=== PATIENT | male | born 1985 | race African-American/Black ===

== ENCOUNTER 2019-06-04 06:47 | Emergency (ER) | payer SELFPAY ==
[2019-06-04] MEDS ORDERED: METHYLPREDNISOLONE 125 MG INJ ONE (07:21)
[2019-06-04] MEDS ORDERED: Magnesium Sulfate 2gm IVPB 2 G/50 ML BAG IV ONE (07:22)
[2019-06-04] MEDS ORDERED: IPRATROPIUM BROM 0.5MG/2.5ML ONE (07:22)
[2019-06-04] MEDS ORDERED: ALBUTEROL 2.5 MG/3 ML NEB SOL ONE (07:22)
[2019-06-04 07:59] LABS: Absolute Lymphocytes (CBC) 1.2 K/uL (0.7-4.9); Basophils % 0.6 % (0-1.3); Hematocrit 39.7 % (39.6-49.0); Lymphocytes % 14.2 % (15.3-44.8); MPV 9.7 fL (7.6-11.3); RBC Red Blood Cell Count 4.75 M/uL (4.33-5.43)
[2019-06-04 08:25] LABS: BUN Blood Urea Nitrogen 8 mg/dL (7-18); Bicarbonate 23 mmol/L (21-32); Glucose Level 120 mg/dL (74-106); Potassium 3.5 mmol/L (3.5-5.1); Sodium Level 140 mmol/L (136-145); Troponin (Emerg Dept Use Only) < 0.02 ng/mL (0.0-0.045)
--- NOTE | 2019-06-04 08:28 | EKG ---
Test Date: 2019-06-04 Test Time: 07:04:31 Gas Leak Tester: RUTH MEASUREMENT RESULTS: Intervals: Rate: 108 NM: 190 QRSD: 86 QT: 328 QTc: 439 Adrian: P: 49 NM: 190 QRS: 118 T: 39 INTERPRETIVE STATEMENTS: Sinus tachycardia Right axis deviation Pulmonary disease pattern Abnormal ECG No previous ECG available for comparison Electronically Signed On 06-04-19 08:27:18 CDT by Russel Gaffney
--- NOTE | 2019-06-04 09:03 | RAD REPORT ---
EXAM DESCRIPTION: RAD - Chest Pa And Lat (2 Views) - 06/04/2019 7:36 am CLINICAL HISTORY: Chest pain;Dyspnea COMPARISON: None. TECHNIQUE: PA and lateral views of the chest were obtained. FINDINGS: The lungs are clear. Heart size is normal and central vasculature is within normal limit s. No pleural effusion or pneumothorax seen. No acute bony finding noted. No aortic abnormality. IMPRESSION: No acute cardiopulmonary process.
--- NOTE | 2019-06-04 09:16 | EDPHYS ---
Physician Documentation [facility] Name: James Johnson Age: 34 yrs Sex: Male : 1985 Arrival Date: 06/04/2019 Time: 06:47 Bed 5 Private MD: ED Physician Lex Sanders HPI: 06/04 08:11 This 34 yrs old Black Male presents to ER via Ambulatory with complaints of Chest Pain, kb Breathing Difficulty. 08:11 The patient has shortness of breath at rest. Onset: The symptoms/episode began/occurred kb 2 day(s) ago. Duration: The symptoms are continuous. The patient's shortness of breath is aggravated by exertion. Associated signs and symptoms: Pertinent positives: chest pain, non-productive cough. Severity of symptoms: At their worst the symptoms were moderate in the emergency department the symptoms are unchanged. The patient has not experienced similar symptoms in the past. The patient has not recently seen a physician. Pt reports shortness of breath and cough for 2 days. Today started having chest pain on the way to work. States he had asthma as a child, but hasn't had problems with it since then. Chest pain worse with inspiration and cough. . Historical: - Allergies: 07:03 No Known Allergies; tl1 - Home Meds: 07:03 None [Active]; tl1 - PMHx: 07:03 Anemia; tl1 - PSHx: 07:03 Appendectomy; tl1 - Immunization history:: Adult Immunizations up to date. - Social history:: Smoking status: Patient uses tobacco products, denies chronic smoking, but will smoke occasionally, Patient/guardian denies using alcohol, street drugs. - Ebola Screening: : Patient negative for fever greater than or equal to 101.5 degrees Fahrenheit, and additional compatible Ebola Virus Disease symptoms Patient denies exposure to infectious person Patient denies travel to an Ebola-affected area in the 21 days before illness onset. ROS: 08:10 Constitutional: Negative for fever, chills, and weight loss, Neck: Negative for injury, kb pain, and swelling, Abdomen/GI: Negative for abdominal pain, nausea, vomiting, diarrhea, and constipation, Back: Negative for injury and pain, : Negative for injury, bleeding, discharge, and swelling, MS/Extremity: Negative for injury and deformity, Skin: Negative for injury, rash, and discoloration, Neuro: Negative for headache, weakness, numbness, tingling, and seizure. 08:10 Cardiovascular: Positive for chest pain, Negative for edema, orthopnea, palpitations, paroxysmal nocturnal dyspnea. 08:10 Respiratory: Positive for cough, with no reported sputum, dyspnea on exertion, shortness of breath. Exam: 08:10 Constitutional: This is a well developed, well nourished patient who is awake, alert, kb and in no acute distress. Head/Face: Normocephalic, atraumatic. ENT: Nares patent. No nasal discharge, no septal abnormalities noted. Tympanic membranes are normal and external auditory canals are clear. Oropharynx with no redness, swelling, or masses, exudates, or evidence of obstruction, uvula midline. Mucous membranes moist. Neck: Trachea midline, no thyromegaly or masses palpated, and no cervical lymphadenopathy. Supple, full range of motion without nuchal rigidity, or vertebral point tenderness. No Meningismus. Chest/axilla: Normal chest wall appearance and motion. Nontender with no deformity. No lesions are appreciated. Cardiovascular: Regular rate and rhythm with a normal S1 and S2. No gallops, murmurs, or rubs. Normal PMI, no JVD. No pulse deficits. Abdomen/GI: Soft, non-tender, with normal bowel sounds. No distension or tympany. No guarding or rebound. No evidence of tenderness throughout. Skin: Warm, dry with normal turgor. Normal color with no rashes, no lesions, and no evidence of cellulitis. MS/ Extremity: Pulses equal, no cyanosis. Neurovascular intact. Full, normal range of motion. Neuro: Awake and alert, GCS 15, oriented to person, place, time, and situation. Cranial nerves II-XII grossly intact. Motor strength 5/5 in all extremities. Sensory grossly intact. Cerebellar exam normal. Normal gait. 08:10 Respiratory: the patient does not display signs of respiratory distress, Respirations: normal, Breath sounds: wheezing: expiratory that is moderate, is heard diffusely. Vital Signs: 07:03 BP 143 / 96; Pulse 108; Resp 19; Temp 98(O); Pulse Ox 97% ; Weight 167.83 kg; Height 5 tl1 ft. 11 in. (180.34 cm); Pain 5/10; 08:14 BP 141 / 88; Pulse 82; Resp 17; Pulse Ox 99% on Nebulizer Mask; sg 07:03 Body Mass Index 51.60 (167.83 kg, 180.34 cm) tl1 MDM: 07:01 Patient medically screened. kb 08:10 Data reviewed: vital signs, nurses notes. Data interpreted: Pulse oximetry: on room air kb is 97 %. Interpretation: normal. 08:17 The patient's Wells Deep Vein Thrombosis Score was calculated as follows: Heart Rate kb >100 BPM (1.5 Pts). The patient's pulmonary embolism risk score was calculated as follows: the patients heart rate is greater than 100 beats per minute (1.5 Pts). 09:13 Counseling: I had a detailed discussion with the patient and/or guardian regarding: the kb historical points, exam findings, and any diagnostic results supporting the discharge/admit diagnosis, lab results, radiology results, the need for outpatient follow up, a family practitioner, to return to the emergency department if symptoms worsen or persist or if there are any questions or concerns that arise at home. ED course: Pt feeling better after treatment. Wheezing decreased throughout lung perdomo. Educated on plan of care, need for follow up with PCP and to return for worsening symptome. Verbal understanding received. . 06/04 07:20 Order name: CBC with Diff; Complete Time: 08:10 kb 06/04 07:20 Order name: Basic Metabolic Panel; Complete Time: 08:28 kb 06/04 07:20 Order name: Troponin (emerg Dept Use Only); Complete Time: 08:28 kb 06/04 07:20 Order name: D-Dimer; Complete Time: 08:17 kb 06/04 07:20 Order name: Chest Pa And Lat (2 Views) XRAY; Complete Time: 09:10 kb 06/04 07:20 Order name: EKG; Complete Time: 07:20 kb 06/04 07:20 Order name: EKG - Nurse/Tech; Complete Time: 07:41 kb 06/04 07:20 Order name: IV Start; Complete Time: 07:52 kb Administered Medications: 07:45 Drug: Magnesium Sulfate 2 grams Route: IVPB; Infused Over: 2 hrs; Site: left hand; sg 09:00 Follow up: Response: No adverse reaction; IV Status: Completed infusion sg 07:45 Drug: SOLU-Medrol 125 mg Route: IVP; Site: left hand; 07:58 Drug: DuoNeb (3:1) (2.5 mg - 0.5 mg) 3 ml Route: Nebulizer; Disposition: 09:38 Co-signature as Attending Physician, Lex Sanders MD I agree with the assessment and kdr plan of care. Disposition: 06/04/19 09:15 Discharged to Home. Impression: Bronchitis, not specified as acute or chronic. - Condition is Stable. - Discharge Instructions: Acute Bronchitis, [id number], Viral Respiratory Infection, [id number]. - Prescriptions for Prednisone 20 mg Oral Tablet - take 1 tablet by ORAL route once daily for 5 days; 5 tablet. Albuterol Sulfate 90 mcg/actuation - inhale 1-2 puff by INHALATION route every 4-6 hours; 1 Inhaler. - Medication Reconciliation Form, Thank You Letter, Antibiotic Education, Prescription Opioid Use, Work release form form. - Follow up: Emergency Department; When: As needed; Reason: Worsening of condition. Follow up: Private Physician; When: 2 - 3 days; Reason: Recheck today's complaints, Continuance of care, Re-evaluation by your physician. Signatures: Dispatcher [employer] EDPooja Aleman, BOATHOUSE KEEPER-C BOATHOUSE KEEPER-Bernardo Argueta RN RN Lex Gill MD MD [facility] Lorena Garcia RN RN tl1 Corrections: (The following items were deleted from the chart) 09:26 09:15 06/04/2019 09:15 Discharged to Home. Impression: Bronchitis, not specified as sg acute or chronic. Condition is Stable. Forms are Medication Reconciliation Form, Thank You Letter, Antibiotic Education, Prescription Opioid Use. Follow up: Emergency Department; When: As needed; Reason: Worsening of condition. Follow up: Private Physician; When: 2 - 3 days; Reason: Recheck today's complaints, Continuance of care, Re-evaluation by your physician. kb
--- NOTE | 2019-06-04 09:16 | ER ---
Nurse's Notes [facility] Name: James Johnson Age: 34 yrs Sex: Male : 1985 Arrival Date: 06/04/2019 Time: 06:47 Bed 5 Private MD: Diagnosis: Bronchitis, not specified as acute or chronic Presentation: 06/04 07:01 Presenting complaint: Patient states: I was on my way to work and I started having tl1 chest pain and shortness of breath. I have had a cough for 2 days. Transition of care: patient was not received from another setting of care. Onset of symptoms was June 04, 2019. Risk Assessment: Do you want to hurt yourself or someone else? Patient reports no desire to harm self or others. Initial Sepsis Screen: Does the patient meet any 2 criteria? No. Patient's initial sepsis screen is negative. Does the patient have a suspected source of infection? No. Patient's initial sepsis screen is negative. Care prior to arrival: None. 07:01 Method Of Arrival: Ambulatory tl1 07:01 Acuity: CONCEPCIÓN 3 tl1 Historical: - Allergies: 07:03 No Known Allergies; tl1 - Home Meds: 07:03 None [Active]; tl1 - PMHx: 07:03 Anemia; tl1 - PSHx: 07:03 Appendectomy; tl1 - Immunization history:: Adult Immunizations up to date. - Social history:: Smoking status: Patient uses tobacco products, denies chronic smoking, but will smoke occasionally, Patient/guardian denies using alcohol, street drugs. - Ebola Screening: : Patient negative for fever greater than or equal to 101.5 degrees Fahrenheit, and additional compatible Ebola Virus Disease symptoms Patient denies exposure to infectious person Patient denies travel to an Ebola-affected area in the 21 days before illness onset. Screenin:25 Abuse screen: Denies threats or abuse. Denies injuries from another. Nutritional sg screening: No deficits noted. Tuberculosis screening: No symptoms or risk factors identified. Never had TB. Assessment: 07:10 General: Appears in no apparent distress. well groomed, well developed, well nourished, sg Behavior is calm, cooperative, appropriate for age. Pain: Complains of pain in chest, that worsens with deep breathing Quality of pain is described as "tightness". Neuro: Level of Consciousness is awake, alert, obeys commands, Oriented to person, place, time, [employer] are equal bilaterally Moves all extremities. Full function Gait is steady, Speech is normal, Facial symmetry appears normal, Pupils are PERRLA. Cardiovascular: Patient's skin is warm and dry. Chest pain is denied. Respiratory: Airway is patent Respiratory effort is even, unlabored, Respiratory pattern is regular, symmetrical. GI: No signs and/or symptoms were reported involving the gastrointestinal system. : No signs and/or symptoms were reported regarding the genitourinary system. EENT: No signs and/or symptoms were reported regarding the EENT system. Derm: Skin is intact, is healthy with good turgor, Skin is dry, Skin is normal, Skin temperature is warm. Musculoskeletal: Circulation, motion, and sensation intact. Range of motion: intact in all extremities. 07:14 Reassessment: Patient appears in no apparent distress at this time. Louise FOLEYP at sg bedside with pt at this time, awaiting orders. 08:10 Reassessment: Patient appears in no apparent distress at this time. Patient and/or sg family updated on plan of care and expected duration. Pain level reassessed. Patient is alert, oriented x 3, equal unlabored respirations, skin warm/dry/pink. 08:38 Reassessment: Patient appears in no apparent distress at this time. breathing treatment sg continues at this time. Vital Signs: 07:03 BP 143 / 96; Pulse 108; Resp 19; Temp 98(O); Pulse Ox 97% ; Weight 167.83 kg; Height 5 tl1 ft. 11 in. (180.34 cm); Pain 5/10; 08:14 BP 141 / 88; Pulse 82; Resp 17; Pulse Ox 99% on Nebulizer Mask; sg 07:03 Body Mass Index 51.60 (167.83 kg, 180.34 cm) tl1 ED Course: 06:47 Patient arrived in ED. ds1 06:59 Pooja Kiran FNP-C is [facility]. kb 07:00 Lex Sanders MD is Attending Physician. kb 07:02 Triage completed. tl1 07:03 Arm band placed on right wrist. tl1 07:08 EKG done, by ED staff, reviewed by Lex Sanders MD. em1 07:10 Bernardo Quinn, RN is Primary Nurse. sg 07:10 Patient has correct armband on for positive identification. Bed in low position. Call sg light in reach. Pulse ox on. NIBP on. Warm blanket given. Head of bed elevated. 07:25 Patient moved to radiology via wheelchair. sg 07:37 Chest Pa And Lat (2 Views) XRAY In Process Unspecified. EDMS 07:52 Initial lab(s) drawn, by ED staff, sent to lab. Inserted saline lock: 20 gauge wrist, em1 using aseptic technique. Blood collected. 08:10 Oxygen administered via a nebulizer mask. sg Administered Medications: 07:45 Drug: Magnesium Sulfate 2 grams Route: IVPB; Infused Over: 2 hrs; Site: left hand; sg 09:00 Follow up: Response: No adverse reaction; IV Status: Completed infusion sg 07:45 Drug: SOLU-Medrol 125 mg Route: IVP; Site: left hand; sg 07:58 Drug: DuoNeb (3:1) (2.5 mg - 0.5 mg) 3 ml Route: Nebulizer; Outcome: 09:15 Discharge ordered by . kb 09:26 Patient left the ED. sg Signatures: Dispatcher [employer] EDMS Pooja Kiran, AUTOMATION QA LEAD-C AUTOMATION QA LEAD-Ckb Bernardo Quinn, RN RN Tina Moreno ds1 Sreedhar Singletary em1 Lorena Garcia, RN RN tl1
[2019-06-04 09:52] VITALS: TEMP 98
[2019-06-04 09:53] VITALS: BP 141/88; O2SAT 99
== END 2019-06-04 09:26 | disposition home or self-care (01) ==
LOC: ER 06:47
DX: J40 Bronchitis, not specified as acute or chronic (principal); Z72.0 Tobacco use
CPT/HCPCS: 36415; 71046; 80048; 84484; 85025; 85379; 93005; 94640; 96365; 96375; 99285; J2930; J3475

== ENCOUNTER 2019-10-19 00:06 | Observation (INO) | payer SELFPAY ==
[2019-10-19] MEDS ORDERED: Magnesium Sulfate 2gm IVPB 2 G/50 ML BAG IV ONE (01:05)
[2019-10-19] MEDS ORDERED: IPRATROPIUM BROM 0.5MG/2.5ML ONE (01:06)
[2019-10-19 01:21] LABS: Basophils % 0.6 % (0-1.3); Hematocrit 40.6 % (39.6-49.0); Lymphocytes % 9.6 % (15.3-44.8); MPV 9.1 fL (7.6-11.3); RBC Red Blood Cell Count 4.56 M/uL (4.33-5.43)
--- NOTE | 2019-10-19 01:27 | EDPHYS ---
Physician Documentation [facility] Name: James Johnson Age: 34 yrs Sex: Male : 1985 Arrival Date: 10/19/2019 Time: 00:07 Bed 13 Private MD: ED Physician Xochitl Joshua HPI: 10/18 00:22 This 34 yrs old Black Male presents to ER via Unassigned with complaints of sob. ma2 00:22 Onset: The symptoms/episode began/occurred gradually, 1 day(s) ago. Severity of ma2 symptoms: At their worst the symptoms were mild, in the emergency department the symptoms are unchanged. Associated signs and symptoms: Pertinent positives: Pertinent negatives: diarrhea, nausea, sore throat. The patient has not experienced similar symptoms in the past. Historical: - Allergies: 00:45 No Known Allergies; lp1 - Home Meds: 00:45 None [Active]; lp1 - PMHx: 00:45 Anemia; Asthma; lp1 - PSHx: 00:45 Cholecystectomy; lp1 - Immunization history:: Adult Immunizations up to date. - Social history:: Patient/guardian denies using alcohol, street drugs, The patient lives with family, Smoking status: Patient denies any tobacco usage or history of. - Family history:: not pertinent. ROS: 00:22 Constitutional: Negative for fever, chills, and weight loss. ma2 00:22 All other systems are negative. Exam: 00:22 Constitutional: This is a well developed, well nourished patient who is awake, alert, ma2 and in no acute distress. Chest/axilla: Normal chest wall appearance and motion. Nontender with no deformity. No lesions are appreciated. Cardiovascular: Regular rate and rhythm with a normal S1 and S2. No gallops, murmurs, or rubs. Normal PMI, no JVD. No pulse deficits. Respiratory: bilateral wheezes, diffuse Lungs have equal breath sounds bilaterally, clear to auscultation and percussion. No rales, rhonchi or . No increased work of breathing, no retractions or nasal flaring. Abdomen/GI: Soft, non-tender, with normal bowel sounds. No distension or tympany. No guarding or rebound. No evidence of tenderness throughout. Skin: Warm, dry with normal turgor. Normal color with no rashes, no lesions, and no evidence of cellulitis. MS/ Extremity: Pulses equal, no cyanosis. Neurovascular intact. Full, normal range of motion. Neuro: Awake and alert, GCS 15, oriented to person, place, time, and situation. Cranial nerves II-XII grossly intact. Motor strength 5/5 in all extremities. Sensory grossly intact. Cerebellar exam normal. Normal gait. Vital Signs: 00:15 BP 143 / 77; Pulse 108; Resp 22; Temp 97.4(TE); Pulse Ox 99% on 10% Nebulizer Mask; lp1 Weight 165.56 kg (R); Height 5 ft. 11 in. (180.34 cm); Pain 0/10; 01:00 BP 157 / 90; Pulse 94; Resp 18; Pulse Ox 98% on R/A; wh 02:15 BP 151 / 96; Pulse 98; Resp 18; Pulse Ox 96% on R/A; wh 00:15 Body Mass Index 50.91 (165.56 kg, 180.34 cm) lp1 MDM: 00:09 Patient medically screened. ma2 00:22 Differential Diagnosis: Bronchitis Influenza Upper Respiratory Infection Sinusitis. ma2 Data reviewed: vital signs, nurses notes. Counseling: I had a detailed discussion with the patient and/or guardian regarding: the historical points, exam findings, and any diagnostic results supporting the discharge/admit diagnosis, the presence of at least one elevated blood pressure reading (>120/80) during this emergency department visit, the need for outpatient follow up. Response to treatment: the patient's symptoms have markedly improved after treatment. 10/18 00:22 Order name: BMP ma2 10/18 00:22 Order name: CBC with Diff ma2 10/18 00:22 Order name: Lipase ma2 10/18 00:22 Order name: Magnesium ma2 10/18 00:23 Order name: Flu ma2 10/18 01:46 Order name: CBC with Automated Diff EDMS 10/18 00:22 Order name: XRAY CXR (1 view) ma2 10/18 01:46 Order name: CONS Pharmacy Consult EDMS 10/18 01:46 Order name: Regular EDMS 10/18 01:46 Order name: CBC with Automated Diff EDMS 10/18 01:46 Order name: Comprehensive Metabolic Panel EDMS 10/18 01:46 Order name: Comprehensive Metabolic Panel EDID 10/18 00:22 Order name: Labs collected and sent; Complete Time: : wi2 10/18 00:22 Order name: O2 Per Protocol; Complete Time: : ma2 10/18 00:22 Order name: O2 Sat Monitoring; Complete Time: :2 Administered Medications: 01:07 Drug: Magnesium Sulfate 2 grams Route: IVPB; Infused Over: 2 hrs; Site: left antecubital; 02:02 Follow up: IV Status: Completed infusion lp1 02:29 Follow up: Response: No adverse reaction; IV Status: Completed infusion 01:08 Drug: AtroVENT Aerosol 0.5 mg Route: Inhalation; 01:46 Drug: AtroVENT Aerosol 0.5 mg Route: Inhalation; 02:29 Follow up: Response: No adverse reaction; Wheezing diminished Disposition: 10/19/19 01:25 Hospitalization ordered by Farideh Anthony for Observation. Preliminary diagnosis is Asthma. - Bed requested for Telemetry/MedSurg (observation). - Status is Observation. - Condition is Stable. - Problem is new. - Symptoms are unchanged. Signatures: Dispatcher [employer] [facility] Minoo Evangelista RN RN [facility] Ania Marks RN RN Vipul Juarez Xochitl Joshua MD MD ma2 Corrections: (The following items were deleted from the chart) 02:12 01:25 Hospitalization Ordered by Farideh Anthony MD for Observation. Preliminary cg diagnosis is Asthma. Bed requested for Telemetry/MedSurg (observation). Status is Observation. Condition is Stable. Problem is new. Symptoms are unchanged. ma2 02:47 02:12 10/19/2019 01:25 Hospitalization Ordered by Farideh Anthony MD for Observation. Preliminary diagnosis is Asthma. Bed requested for Telemetry/MedSurg (observation). Status is Observation. Condition is Stable. Problem is new. Symptoms are unchanged.
--- NOTE | 2019-10-19 01:27 | ER ---
Nurse's Notes [facility] Name: James Johnson Age: 34 yrs Sex: Male : 1985 Arrival Date: 10/19/2019 Time: 00:07 Bed 13 Private MD: Diagnosis: Asthma Presentation: 10/18 00:15 Chief complaint: EMS states: Called for patient with shortness of breath all days, lp1 worsening; Hx of asthma, no home meds; Per EMS, on arrival to scene, patient with audible wheezing, diaphoretic, tachycardic, 89% on RA; Symptoms improved on arrival to ED, patient feeling better. 00:15 Coronavirus screen: The patient has NOT traveled to a country currently being monitored lp1 by the [facility] within the last 14 days. The patient has NOT had contact with any known and/or suspected case of coronavirus. Ebola Screen: No symptoms or risks identified at this time. Initial Sepsis Screen: Does the patient meet any 2 criteria? RR > 20 per min. HR > 90 bpm. Does the patient have a suspected source of infection? No. Patient's initial sepsis screen is negative. Risk Assessment: Do you want to hurt yourself or someone else? Patient reports no desire to harm self or others. Onset of symptoms was October 19, 2019. 00:15 Method Of Arrival: EMS: [facility] lp1 00:15 Acuity: CONCEPCIÓN 3 lp1 00:20 Care prior to arrival: Medication(s) given: Albuterol x2, Atrovent x1, Solu-Medrol lp1 125mg IV IV initiated. 20 GA, in the left forearm, Med neb given. Historical: - Allergies: 00:45 No Known Allergies; lp1 - Home Meds: 00:45 None [Active]; lp1 - PMHx: 00:45 Anemia; Asthma; lp1 - PSHx: 00:45 Cholecystectomy; lp1 - Immunization history:: Adult Immunizations up to date. - Social history:: Patient/guardian denies using alcohol, street drugs, The patient lives with family, Smoking status: Patient denies any tobacco usage or history of. - Family history:: not pertinent. Screenin:45 Abuse screen: Denies threats or abuse. Denies injuries from another. Nutritional lp1 screening: No deficits noted. Tuberculosis screening: No symptoms or risk factors identified. Fall Risk None identified. Assessment: 00:15 General: Appears in no apparent distress. Behavior is appropriate for age. Pain: Denies lp1 pain. Neuro: Level of Consciousness is awake, alert, obeys commands, Oriented to person, place, time, situation. Cardiovascular: Patient's skin is warm and dry. Respiratory: Reports shortness of breath Airway is patent Respiratory effort is even, labored, Respiratory pattern is symmetrical, Breath sounds are coarse bilaterally. Onset: The symptoms/episode began/occurred gradually, the patient has moderate shortness of breath. GI: Abdomen is obese. : No signs and/or symptoms were reported regarding the genitourinary system. EENT: No signs and/or symptoms were reported regarding the EENT system. Derm: Skin is intact, Skin is dry, Skin is normal. Musculoskeletal: No deficits noted. 01:18 Reassessment: Patient appears in no apparent distress at this time. No changes from previously documented assessment. Patient and/or family updated on plan of care and expected duration. Pain level reassessed. Patient is alert, oriented x 3, equal unlabored respirations, skin warm/dry/pink. 02:27 Reassessment: Patient appears in no apparent distress at this time. No changes from previously documented assessment. Patient and/or family updated on plan of care and expected duration. Pain level reassessed. Patient is alert, oriented x 3, equal unlabored respirations, skin warm/dry/pink. Patient states feeling better. Patient states symptoms have improved. Vital Signs: 00:15 BP 143 / 77; Pulse 108; Resp 22; Temp 97.4(TE); Pulse Ox 99% on 10% Nebulizer Mask; lp1 Weight 165.56 kg (R); Height 5 ft. 11 in. (180.34 cm); Pain 0/10; 01:00 BP 157 / 90; Pulse 94; Resp 18; Pulse Ox 98% on R/A; wh 02:15 BP 151 / 96; Pulse 98; Resp 18; Pulse Ox 96% on R/A; wh 00:15 Body Mass Index 50.91 (165.56 kg, 180.34 cm) lp1 ED Course: 00:07 Patient arrived in ED. ds1 00:09 Xochitl Joshua MD is Attending Physician. ma2 00:15 Patient has correct armband on for positive identification. Bed in low position. Call lp1 light in reach. monitor tech on. Pulse ox on. NIBP on. 00:15 Maintain EMS IV. Dressing intact. Site clean \T\ dry. Gauge \T\ site: 20g IV to L FA. lp 1 00:43 Triage completed. lp1 00:43 XRAY CXR (1 view) In Process Unspecified. EDMS 00:43 Arm band placed on. lp1 00:55 Vipul Juarez is Primary Nurse. 01:25 Farideh Anthony MD is Hospitalizing Provider. ma2 02:28 No provider procedures requiring assistance completed. Patient admitted, IV remains in place. Administered Medications: 01:07 Drug: Magnesium Sulfate 2 grams Route: IVPB; Infused Over: 2 hrs; Site: left antecubital; 02:02 Follow up: IV Status: Completed infusion lp1 02:29 Follow up: Response: No adverse reaction; IV Status: Completed infusion 01:08 Drug: AtroVENT Aerosol 0.5 mg Route: Inhalation; 01:46 Drug: AtroVENT Aerosol 0.5 mg Route: Inhalation; 02:29 Follow up: Response: No adverse reaction; Wheezing diminished Outcome: 01:25 Decision to Hospitalize by Provider. ma2 02:28 Admitted to Med/surg accompanied by tech, via wheelchair, room 412, with chart, Report called to Meenakshi Biggs RN 02:28 Condition: stable 02:28 Instructed on the need for admit. 02:47 Patient left the ED. Signatures: Dispatcher [employer] [facility] Tina Moreno [facility] Minoo Evangelista RN RN 1 Vipul Juarez Xochitl Joshua MD MD ma2 Corrections: (The following items were deleted from the chart) 00:44 00:15 Chief complaint: EMS states: Called for patient with shortness of breath all lp1 days, worsening; Hx of asthma, no home meds; Per EMS, on arrival to scene, patient with audible wheezing, diaphoretic, tachycardic; Symptoms improved on arrival to ED, patient feeling better lp1
[2019-10-19 01:31] LABS: BUN Blood Urea Nitrogen 10 mg/dL (7-18); Bicarbonate 24 mmol/L (21-32); Glucose Level 140 mg/dL (74-106); Lipase 85 U/L (73-393); Magnesium 1.8 mg/dL (1.8-2.4); Potassium 3.7 mmol/L (3.5-5.1); Sodium Level 137 mmol/L (136-145)
[2019-10-19] MEDS ORDERED: MORPHINE 2 MG/ML SYR IV PRN (01:39)
[2019-10-19] MEDS ORDERED: ONDANSETRON 4 MG/2 ML VIAL IV PRN (01:39)
[2019-10-19] MEDS ORDERED: ALBUTEROL 2.5 MG/3 ML NEB SOL NEB PRN (01:39)
[2019-10-19] MEDS ORDERED: LORAZEPAM 0.5 MG TABLET PO PRN (01:41)
[2019-10-19 03:38] VITALS: BMI 58.2
[2019-10-19] MEDS: NA CHLORIDE 0.9% 1,000 ML IV SCH ×2 (03:51→11:37)
[2019-10-19] MEDS: GUAIFENESIN 600 MG SA TAB PO SCH ×2 (03:52→09:45)
[2019-10-19] MEDS ORDERED: CEFTRIAXONE/SWI 1gm 1 GM/10 ML SYR IV SCH (04:00)
[2019-10-19] MEDS: IPRATROPIUM BROM 0.5MG/2.5ML NEB SCH ×2 (04:15→08:31)
[2019-10-19] MEDS: ALBUTEROL 2.5 MG/3 ML NEB SOL NEB SCH ×2 (04:15→08:31)
[2019-10-19] MEDS: METHYLPREDNISOLONE 125 MG INJ IV SCH ×2 (05:26→11:36)
[2019-10-19] MEDS ORDERED: PANTOPRAZOLE 40MG TABLET PO SCH (07:30)
--- NOTE | 2019-10-19 08:27 | RAD REPORT ---
EXAM DESCRIPTION: RAD - Chest Single View - 10/19/2019 12:43 am CLINICAL HISTORY: COUGH Chest pain. COMPARISON: Chest Pa And Lat (2 Views) dated 06/04/2019 FINDINGS: Portable technique limits examination quality. Mild opacity in the medial right lung base may represent atelectasis or focal infiltrate/ pneumonia. Dedicated two views of the chest would be helpful. The heart is normal in size. No displaced fracture s.
[2019-10-19] MEDS ORDERED: AMLODIPINE 5 MG TAB PO SCH (09:00)
[2019-10-19] MEDS ORDERED: INFLUENZA VACCINE (for 3y+) 0.5 ML DOSE IMVAC ONE (09:00)
[2019-10-19] MEDS ORDERED: ENOXAPARIN 40 MG/0.4 ML SQ SCH (09:00)
[2019-10-19] MEDS ORDERED: CEFTRIAXONE 1 GM/NS 50 ML 1 GM/50 ML BAG IV SCH (09:00)
[2019-10-19] MEDS ORDERED: PNEUMOCOCCAL VACCINE 0.5 ML IMVAC ONE (09:00)
--- NOTE | 2019-10-19 11:21 | RAD REPORT ---
EXAM DESCRIPTION: RAD - Chest Pa And Lat (2 Views) - 10/19/2019 11:06 am CLINICAL HISTORY: possible pna Chest pain. COMPARISON: Chest Single View dated 10/19/2019; Chest Pa And Lat (2 Views) dated 06/04/2019 FINDINGS: The lungs are clear. The heart is normal in size. No displaced fractures. IMPRESSION: No acute or concerning finding suspected.
[2019-10-19 12:21] VITALS: BP 140/88; TEMP 97.8
--- NOTE | 2019-10-19 12:32 | P.DS ---
Addendum entered and electronically signed by Yvan Serrano PA 10/19/19 18:13 : This is a 34-year-old male that was admitted for acute exacerbation of asthma. Has done well over the last 24 hr. Now to the point where he is no longer requiring supplemental oxygen. Patient has been able to ambulate with out assistance. Saturations with ambulation was between 92 and 94%. Patient was able to recover from ambulation with minimal shortness of breath. At resting stay patient's oxygen saturation without oxygen was anywhere between 94 and 98% . Patient feeling much better after steroid therapy and breathing treatments. No other acute findings were noted on physical exam. 2nd chest x-ray, which was completed did not show any signs of pneumonia. Patient will be discharged with prednisone, Dulera, albuterol. Patient will follow up with PCP in the next couple of days and knows to return if something were to acutely change or worsen. Original Note: Admission Date: 10/19/19 Discharge Date: 10/19/19 Primary Care Provider: PCP Reason for Admission: Asthma Exacerbation - Problems (1) Asthma Status: Acute Qualifiers: Asthma severity: mild Asthma complication type: with acute exacerbation Brief History of Present Illness: This is a 34-year-old male that came in from the emergency room with acute asthma exacerbation. Patient was admitted and put on continuous pulse ox and telemetry for monitoring along with the DuoNeb and Solu-Medrol for exacerbation. Patient stated that he normally does not require any therapy on a daily basis and only utilizes his medication as needed. Woke up with shortness of breath yesterday that had progressed throughout the day. Denied any recent cold, cough, congestion, or other illnesses. Hospital Course: Patient has done well while in the hospital. Patient no longer requiring supplemental oxygen and is able to ambulate with minimal drop in his SpO2. <Yvan Serrano - Last Filed: 10/19/19 12:19> Admission Date: 10/19/19 Discharge Date: 10/20/19 <Rain Thrasher - Last Filed: 10/20/19 14:21> Disposition: ROUTINE DISCHARGE Discharge Condition: GOOD Vital Signs/Physical Exam: Temp Pulse Resp BP Pulse Ox 96.6 F L 90 19 145/65 H 96 10/19/19 08:00 10/19/19 09:45 10/19/19 08:00 10/19/19 09:45 10/19/19 08:00 General: Alert, In no apparent distress HEENT: Normocephalic, PERRLA, Mucous membr. moist/pink, EOMI Neck: Supple, 2+ carotid pulse no bruit, JVD not distended Respiratory: Normal air movement, Expiratory wheezes (mild in the lower lobes bilaterally ) Cardiovascular: No edema, Normal pulses, Regular rate/rhythm, Normal S1 S2, No gallops, No rubs, No murmurs Capillary refill: <2 Seconds Gastrointestinal: Normal bowel sounds, Soft and benign, Non-distended, No ascites, No tenderness, No masses, No rebound, No guarding Musculoskeletal: No clubbing, No swelling, No contractures, No erythema, No tenderness, No warmth Integumentary: No rashes, No breakdown, No significant lesion, No tenderness/ swelling, No erythema, No warmth, No cyanosis Neurological: Normal gait, Normal speech, Normal strength at 5/5 x4 extr, Normal tone, Sensation intact, Cranial nerves 3-12 intact, Normal reflexes 2+, Normal affect Lymphatics: No axilla or inguinal lymphadenopathy Laboratory Data at Discharge: WBC 10.9 K/uL (4.3-10.9) 10/19/19 00:46 Hgb 13.5 g/dL (13.6-17.9) L 10/19/19 00:46 Hct 40.6 % (39.6-49.0) 10/19/19 00:46 Plt Count 236 K/uL (152-406) 10/19/19 00:46 Sodium 137 mmol/L (136-145) 10/19/19 00:46 Potassium 3.7 mmol/L (3.5-5.1) 10/19/19 00:46 BUN 10 mg/dL (7-18) 10/19/19 00:46 Creatinine 1.13 mg/dL (0.55-1.3) 10/19/19 00:46 Glucose 140 mg/dL (74-106) H 10/19/19 00:46 Magnesium 1.8 mg/dL (1.8-2.4) 10/19/19 00:46 Lipase 85 U/L (73-393) 10/19/19 00:46 <Yvan Serrano - Last Filed: 10/19/19 12:19> Vital Signs/Physical Exam: Temp Pulse Resp BP Pulse Ox 97.8 F 105 H 19 140/88 93 10/19/19 12:00 10/19/19 12:00 10/19/19 12:00 10/19/19 12:00 10/19/19 12:00 Laboratory Data at Discharge: WBC 10.9 K/uL (4.3-10.9) 10/19/19 00:46 Hgb 13.5 g/dL (13.6-17.9) L 10/19/19 00:46 Hct 40.6 % (39.6-49.0) 10/19/19 00:46 Plt Count 236 K/uL (152-406) 10/19/19 00:46 Sodium 137 mmol/L (136-145) 10/19/19 00:46 Potassium 3.7 mmol/L (3.5-5.1) 10/19/19 00:46 BUN 10 mg/dL (7-18) 10/19/19 00:46 Creatinine 1.13 mg/dL (0.55-1.3) 10/19/19 00:46 Glucose 140 mg/dL (74-106) H 10/19/19 00:46 Magnesium 1.8 mg/dL (1.8-2.4) 10/19/19 00:46 Lipase 85 U/L (73-393) 10/19/19 00:46 <Rain Thrasher - Last Filed: 10/20/19 14:21> Patient Discharge Instructions: Rest for next 72 hours. Push fluids. Ambulate As tolerated. Recommend allergy testing. To Return to ED if worse Diet: Regular Activity: Ad tadeo Time spent managing pt's care (in minutes): 40 <Yvan Serrano - Last Filed: 10/19/19 12:19> Physician Review: Patient Assessed, Agree with Above Assessment and Plan (Case discussed w [facility]. Chart reviewed) <Rain Thrasher - Last Filed: 10/20/19 14:21> Home Medications: Albuterol Inhaler [Ventolin Inhaler*] 2 puff IH Q6H PRN #1 hfa.aer.ad 10/19/19 Cetirizine HCl [Zyrtec] 10 mg PO DAILY #30 tablet 10/19/19 Mometasone/Formoterol [Dulera 100 Mcg/5 Mcg Inhaler] 2 puff IH BID #1 hfa.aer.ad 10/19/19 Prednisone [Sterapred Ds] 20 mg PO DAILY #10 tab.ds.pk 10/19/19 New Medications: Albuterol Inhaler [Ventolin Inhaler*] 2 puff IH Q6H PRN #1 hfa.aer.ad PRN Reason: Shortness Of Breath Cetirizine HCl [Zyrtec] 10 mg PO DAILY #30 tablet Mometasone/Formoterol [Dulera 100 Mcg/5 Mcg Inhaler] 2 puff IH BID #1 hfa.aer.ad Prednisone [Sterapred Ds] 20 mg PO DAILY #10 tab.ds.pk
--- NOTE | 2019-10-19 12:33 | HP ---
Date of Admission: 10/19/2019 Presenting Complaint: Shortness of breath and wheezing. History Of Present Illness: is a pleasant 34-year-old male with past medical history of obstructive sleep apnea in childhood but taken off CPAP use since age 18, history of asthma, who presented because of worsening shortness of breath, cough, and wheezing since the las t 3 days. He denies any recent travel. He denies any cough contacts. He denies any fever or chills . On presentation, he has O2 saturation of 89% on room air. He was also noted to be tachycardic wit h heart rate of 110. The patient was given DuoNebs with slight improvement in his symptoms, but whee zing still continues. He has been admitted for asthma exacerbation. He denies any history of tobacc o use. Past Medical History: Significant for asthma, childhood diagnosis of obstructive sleep apnea and use d BiPAP for 1 year. History of anemia in childhood and history of obesity. Past Surgical History: Cholecystectomy. Family History: Significant for grandmother with coronary artery disease. Social History: Patient denies any tobacco, alcohol, or illicit drug use. He is fully functional at baseline. Home Medications: None. Review of Systems: All systems reviewed x14 were negative except as mentioned above. Physical Examination: Current Vitals: Blood pressure of 161/87, pulse of 94, respiratory rate of 20, temp 97.4, O2 saturat ion 98 on 2 L nasal cannula. General: Obese young male, calm, lying in bed. HEENT: Head is atraumatic, normocephalic. On my initial arrival in patient's room, patient was slee ping and has significant audible snoring. Pupils equal, reactive to light. Extraocular motor moveme nts intact. Neck: No JVD. No carotid bruit. Respiratory: Pvzz-id-owozmhye expiratory wheeze but no crackles. Cardiovascular: S1, S2. Rate and rhythm regular. Abdomen: Full, soft, nontender. Bowel sounds positive. Extremities: No pedal edema. No calf tenderness. Neuro: Patient is alert, oriented. Cranial nerves 2 through 12 grossly intact. Laboratory Data: WBC 10.9, hemoglobin 13.5, platelets 236, neutrophils 80%, no bands. Sodium 137, p otassium 3.7, bicarb 24, magnesium 1.8. Lipase 85, creatinine 1.1. Diagnostic Studies: Chest x-ray shows no acute infiltrates. Impression: 1.Acute asthma exacerbation. 2.Presumed acute bronchitis. 3.Hypertension. 4.Obstructive sleep apnea. 5.Obesity. Plan: 1.We will admit patient to observation. We will manage patient for the followin.Acute asthma exacerbation may be due to viral bronchitis. We will obtain influenza swab. We will also obtain sputum for culture and sensitivity. It is possible we will start patient on DuoNebs q.4 h. with p.r.n. We will also do IV steroids with Solu-Medrol. We will start empirical antibiotics w ith Rocephin. We will also give magnesium sulfate 2 g x1 given borderline magnesium level. 3.Hypertension. Patient denies previous history. blood pressure, we will start patient on amlodipine. I am sure patient has baseline underlying high blood pressure given his obese status. 4.History of presumed recurrent obstructive sleep apnea, need for sleep study as outpatient discusse d with patient. Continue oxygen use while asleep while inpatient now. 5.DVT prophylaxis. Subcutaneous Lovenox. 6.Advanced directive. Patient is full code. Total time spent in review of record discussion with patient and evaluation greater than 60 minutes. JOSIAH/LATOYA Voice ID: [id number]
[2019-10-19 13:56] VITALS: O2SAT 93
[2019-10-20] MEDS ORDERED: Magnesium Sulfate 2gm IVPB 2 G/50 ML BAG IV ONE (01:41)
== END 2019-10-19 13:51 | disposition home or self-care (01) ==
LOC: ER 00:06 → ERHOLD 01:40 → 4TH 02:28
PROVIDERS: ADMIT Internal Medicine; ATTEND Family Medicine
DX: J45.901 Unspecified asthma with (acute) exacerbation (principal); I10 Essential (primary) hypertension; E66.9 Obesity, unspecified; Z68.43 Body mass index [BMI] 50.0-59.9, adult; Z79.899 Other long term (current) drug therapy
CPT/HCPCS: 36415; 71045; 71046; 80048; 83690; 83735; 85025; 87804; 90471; 90670; 94640; 94760; 96365; 99285; G0378; J0696; J1650; J2270; J2930; J3475; J7030; Q2035